=== PATIENT | male | born 1985 | race Caucasian/White ===

== ENCOUNTER 2016-03-31 10:41 | Emergency (ER) | payer SELFPAY ==
[~2016-03-31] VITALS: Ht 182.9 cm; Wt 86.6 kg
[~2016-03-31 10:41] MED LIST: ACET-1256 PO; DIAZ-165 PO; IBUP-103 PO; OXYC1TAB3 PO; PSEU30TA20 PO
[2016-03-31 10:48] VITALS: TEMP 36.7; Ht 182.9 cm; Wt 86.6 kg
[2016-03-31] MEDS ORDERED: PROCHLORPERAZINE 5 MG/ML 2 ML VIAL IV STA (11:36)
[2016-03-31] MEDS ORDERED: DiphenhydrAMINE HCL 50 MG/ML VIAL IV STA (11:36)
[2016-03-31] MEDS ORDERED: SODIUM CHLORIDE 0.9% 1000ML 1,000 ML IV STA (11:36)
[2016-03-31] MEDS ORDERED: KETOROLAC TROMETHAMINE 30 MG/ML VIAL IV STA (11:36)
[2016-03-31] MEDS ORDERED: MoRPHine SULFATE 10 MG/ML CARP/VIAL IV STA (12:39)
[2016-03-31] MEDS ORDERED: OXYC-57 PO (13:24)
--- NOTE | 2016-03-31 13:25 | EMERGENCY ROOM VISIT NOTE ---
History First contact with patient: 11:29 Chief Complaint: HEADACHE Stated Complaint: NECK PAIN,MIGRAINE,VOMITING History of Present Illness The patient is a 30 year old male who presents to the Emergency Room with complaints of a migraine headache which started last night. The patient reports that he has been having issues with neck pain for several months. He has been evaluated here previously for the neck pain. He states that he recently went to physical therapy, which did seem to help his neck pain. However, over the past few days he has developed pain in the neck which does feel similar to his chronic neck pain. He states that last night, he developed a migraine headache which does feel similar to previous migraines he has had. He has associated vomiting and photophobia, which he states is normal for him. He rates his discomfort an 8/10 and states the pain as throbbing and located throughout the front of his head. He has taken Excedrin without relief of the headache. He does not see a specialist for his migraines and states that he has not had imaging since he was a child. He denies any fevers/chills, neck stiffness, cough, chest pain, sore throat, earaches, nasal congestion, abdominal pain. He denies any numbness, weakness, vision changes or slurred speech. Review of Systems A complete 10-point Review of Systems was discussed with the patient, with pertinent positives and negatives listed in the History of Present Illness. All remaining Review of Systems questions can be considered negative unless otherwise specified. Past Medical/Surgical History Medical Problems: (1) Chronic lumbar pain (2) Chronic lumbar pain (3) Left lumbar radiculitis (4) Left lumbar radiculitis (5) Pain in left testicle (6) Pain, dental (7) Right groin pain (8) Testicular torsion (9) Torticollis, acute Surgical Problems: (1) Status post orchiopexy Family History FH: HTN (hypertension) FH: cancer FH: heart disease Social History Smoking Status: Former Smoker Alcohol Use: occasionally Drug Use: none Marital Status: Housing Status: lives with significant other Occupation Status: employed Current/Historical Medications Scheduled PRN Acetaminophen (Tylenol), 1,000 MG PO Q6 PRN for Pain Ibuprofen Tab (Advil), 400-600 MG PO Q6H PRN for Pain Oxycodone/Acetaminophen 5MG/325MG (Percocet 5MG/325MG), 1-2 TABS PO Q4H PRN for Pain Pseudoephedrine (Sudafed), 30 MG PO DAILY PRN for CONGESTION Allergies Coded Allergies: CI Pigment Blue 63 (Verified Allergy, Intermediate, Vomiting, 03/31/16) Duloxetine (Verified Allergy, Intermediate, Vomiting, 03/31/16) Physical Exam Vital Signs Date Time Temp Pulse Resp B/P Pulse Ox O2 Delivery O2 Flow Rate FiO2 03/31/16 13:41 79 17 139/79 98 03/31/16 12:55 78 18 120/90 100 Room Air 03/31/16 10:48 36.7 100 17 136/91 97 Room Air Physical Exam VITALS: Vitals are noted on the nurse's note and reviewed by myself. Vital signs stable. GENERAL: This is a 30-year-old male, in no acute distress, nondiaphoretic, well- developed well-nourished. SKIN: The skin was without rashes. HEAD: Normocephalic atraumatic. EARS: External auditory canals clear, tympanic membranes pearly mercado without erythema or effusion bilaterally. EYES: Pupils equal round and reactive to light and accommodation. Conjunctivae without injection, sclerae without icterus. Extraocular movements intact. NOSE: Patent, turbinates without inflammation or discharge. No sinus tenderness. MOUTH: Mucous membranes moist. Tonsils are not enlarged. Pharynx without erythema or exudate. NECK: Supple without nuchal rigidity. No lymphadenopathy. Kernig's and Brudzinski's negative. HEART: Regular rate and rhythm without murmurs gallops or rubs. LUNGS: Clear to auscultation bilaterally without wheezes, rales or rhonchi. ABDOMEN: Soft, nontender to palpation. MUSCULOSKELETAL: Full range of motion of all extremities, strength 5/5 throughout. NEURO: Patient was alert and oriented to person place and time. Normal sensation to light and sharp touch. Deep tendon reflexes 2+ throughout. No focal neurological deficits. Medical Decision & Procedures Medications Administered Medications (Trade) Dose Ordered Sig/David Route Start Time Stop Time Status Last Admin Dose Admin Sodium Chloride (Nss 1000ml) 1,000 ml @ 999 mls/hr Q1H1M STAT IV 03/31/16 11:36 03/31/16 12:36 DC 03/31/16 11:48 999 MLS/HR Prochlorperazine Edisylate (Compazine Inj) 10 mg NOW STAT IV 03/31/16 11:36 03/31/16 11:38 DC 03/31/16 11:49 10 MG Ketorolac Tromethamine (Toradol Inj) 30 mg NOW STAT IV 03/31/16 11:36 03/31/16 11:38 DC 03/31/16 11:49 30 MG Diphenhydramine HCl (Benadryl Inj) 25 mg NOW STAT IV 03/31/16 11:36 03/31/16 11:38 DC 03/31/16 11:48 25 MG Morphine Sulfate (MoRPHine SULFATE INJ) 6 mg NOW STAT IV 03/31/16 12:39 03/31/16 12:40 DC 03/31/16 12:53 6 MG Medical Decision The differential diagnosis includes acute intracranial bleed, meningitis, encephalitis, mass or mass effect, sinusitis, infection, tumor, headache, temporal arteritis and carbon monoxide exposure, and migraine. The patient was evaluated as above. IV access was obtained. The patient was medicated as above. The patient is a 30-year-old male who presents complaining of neck pain and migraine headache. The patient does have a history of neck pain and has been seen here for it previously. He has had imaging performed at this facility for neck pain. He states that the neck pain is similar to his chronic pain. He has no fever or meningismus to suggest meningitis or encephalitis. I did initially suggest a CT scan, but the patient declined any further testing. He does report this is not the worst headache of his life and does feel similar to previous migraines. The patient was initially treated with 10 mg Compazine IV, 30 mg Toradol IV, and 25 mg Benadryl IV. He had only moderate relief of his headache and was then given 6 mg morphine with significant relief. He was given a home pack and short prescription of pain medication for any persistent headache. He was encouraged to follow up with his primary care provider or return sooner for any worsening or new/concerning symptoms. He verbalized understanding of my assessment and treatment plan and was discharged home in good condition. The patient's case was reviewed with Dr. Casillas, ED attending physician, who agreed with my assessment and treatment plan. [place] Drug Monitoring Program Search Results: patient reviewed within database, no issues identified Impression Primary Impression: Headache Departure Information Dispostion Home / Self-Care Condition GOOD Prescriptions Oxycodone/Acetaminophen 5MG/325MG (PERCOCET 5MG/325MG) Tab 1-2 TABS PO Q4H Y for Pain, #10 TAB For Initial Treatment Prov: Leela Ariza PA-C 03/31/16 Referrals No Doctor, Assigned (PCP) Patient Instructions [facility] Additional Instructions You have been treated in the Emergency Department for a Headache. You have received pain medicine in the emergency department which impairs your ability to operate a vehicle. It is illegal for you to drive after receiving these medicines. You have been prescribed Percocet to be used for pain control. This is a narcotic medication. You cannot drive or consume alcohol while on this medicine. This medicine should only be used for pain that cannot be controlled with [id number] pain medicines. For pain control, you can use the following [id number] medicines (if >12 yo): - Regular strength (325mg/tab) Tylenol (acetaminophen) 2 tabs every 4-6 hours as needed. Do not exceed 12 tablets in a 24 hour period. Avoid taking more than 4 grams (4000 mg) of Tylenol per day. This includes any other sources of acetaminophen you may take on a regular basis. - Regular strength (200 mg/tab) Advil (ibuprofen) 1-2 tabs every 4-6 hours as needed. Do not exceed a dose of 3200 mg per day. You should relax in a quiet, dark place for the rest of the day. Avoid any possible triggers including: cigarette smoke, caffeine, nicotine, chocolate, wine, beer, loud noises or music, or bright lights. You should schedule a follow-up appointment in 2-3 days with your Primary Care Provider or established Neurologist for further evaluation and treatment of your Headache. Return to the Emergency Department if your current symptoms worsen despite treatment course outlined above, or if you develop any of the following symptoms : intractable pain despite aforementioned treatment course, visual disturbances , loss of vision, unilateral weakness or facial drooping, slurring of speech, loss of coordination, or loss of consciousness. Problem Qualifiers Primary Impression: Headache Headache type: unspecified Headache chronicity pattern: acute headache Intractability: not intractable Qualified Codes: R51 - Headache
[2016-03-31 13:41] VITALS: BP 139/79; PULSE 79; O2SAT 98
== END 2016-03-31 13:41 | disposition home or self-care (01) ==
LOC: C.EDB 10:43 → C.EDC 13:41
DX: R51 Headache (principal); M54.2 Cervicalgia; G89.29 Other chronic pain; Z79.899 Other long term (current) drug therapy; Z87.891 Personal history of nicotine dependence; Z91.09 Other allergy status, other than to drugs and biological substances; Z82.49 Family history of ischemic heart disease and other diseases of the circulatory system; Z80.9 Family history of malignant neoplasm, unspecified

== ENCOUNTER 2017-03-30 21:05 | Emergency (ER) | payer SELFPAY ==
[~2017-03-30] VITALS: Ht 180.3 cm; Wt 92.3 kg
[~2017-03-30 21:05] MED LIST changes: -DIAZ-165 PO; -OXYC1TAB3 PO
[2017-03-30 21:10] VITALS: Ht 180.3 cm; Wt 92.3 kg
[2017-03-30] MEDS ORDERED: SODIUM CHLORIDE 0.9% 1000ML 2,000 ML IV STA (21:45)
[2017-03-30] MEDS ORDERED: ONDANSETRON INJ 2 MG/ML 2 ML VIAL IV STA (21:45)
[2017-03-30 22:07] LABS: BASO % 0.6 %; BASO ABS # 0.03 K/uL (0-0.2); EOS % 1.6 %; EOS ABS # 0.08 K/uL (0-0.5); HEMATOCRIT 43.9 % (42-52); HEMOGLOBIN 15.6 g/dL (14.0-18.0); IG# 0.01 K/uL (0.00-0.02); LYMPH % 37.9 %; LYMPH ABS # 1.93 K/uL (1.2-3.4); MEAN CELL VOLUME 86.9 fL (80-100); MEAN CORPUSCULAR HEMOGLOBIN 30.9 pg (25-34); MEAN CORPUSCULAR HGB CONC 35.5 g/dl (32-36); MEAN PLATELET VOLUME 9.7 fL (7.4-10.4); MONO % 15.1 %; MONO ABS # 0.77 K/uL (0.11-0.59); NEUT % 44.6 %; NEUT ABS # 2.27 K/uL (1.4-6.5); PLATELET COUNT 149 K/uL (130-400); RED CELL DISTRIBUTION WIDTH SD 40.6 fL (36.4-46.3); WHITE BLOOD COUNT 5.09 K/uL (4.8-10.8)
[2017-03-30] MEDS ORDERED: TRAZ50TA35 PO (22:08)
[2017-03-30 22:22] LABS: CALCIUM 9.2 mg/dl (8.5-10.1); CREATININE 0.93 mg/dl (0.60-1.40); POTASSIUM 3.6 mmol/L (3.5-5.1)
[2017-03-30 22:29] LABS: INFLUENZA B ANTIGEN Neg for Influ B (NEG)
--- NOTE | 2017-03-30 22:59 | DIAGNOSTIC IMAGING REPORT ---
CHEST 2 VIEWS ROUTINE CLINICAL HISTORY: 31 years-old Male presenting with cough.congestion, flulike symptoms. TECHNIQUE: PA and lateral views of the chest were obtained. COMPARISON: None. FINDINGS: Cardiomediastinal silhouette normal. Lungs and pleural spaces clear. Osseous structures normal. Upper abdomen normal. IMPRESSION: 1. No acute cardiopulmonary disease. Electronically signed by: Danielito Castañeda M.D. 03/30/2017 10:58 PM Dictated Date/Time: 03/30/2017 10:57 PM
[2017-03-30] MEDS ORDERED: ONDANSETRON HOME PACK 4MG OD TAB PO ONE (23:15)
[2017-03-30] MEDS ORDERED: SODIUM CHLORIDE 0.9% 1000ML 1,000 ML IV STA (23:17)
[2017-03-31] MEDS ORDERED: ONDA4TAB10 SL (00:30)
[2017-03-31 00:37] VITALS: BP 125/70; PULSE 80; TEMP 36.2; O2SAT 100
--- NOTE | 2017-03-31 04:14 | EMERGENCY ROOM VISIT NOTE ---
History First contact with patient: 21:31 Chief Complaint: FLU LIKE SX Stated Complaint: VOMITING,WEAKNESS,DIZZINESS,BODY ACHES History of Present Illness The patient is a 31 year old male who presents to the Emergency Room with complaints of nausea, vomiting, diarrhea, cough and chills for the past few days. No sick contacts. No temperature was taken. Patient denies chest pain, dyspnea, headache, neck stiffness, sore throat. No abdominal pain. He is able to keep fluids down but has not really eaten. He feels as if the vomiting and diarrhea are tapering off. Review of Systems An 10 system review of systems was completed with positives and pertinent negatives listed in the HPI. Past Medical/Surgical History Medical Problems: (1) Chronic lumbar pain (2) Chronic lumbar pain (3) Left lumbar radiculitis (4) Left lumbar radiculitis (5) Pain in left testicle (6) Pain, dental (7) Right groin pain (8) Testicular torsion (9) Torticollis, acute Surgical Problems: (1) Status post orchiopexy Family History FH: HTN (hypertension) FH: cancer FH: heart disease Social History Smoking Status: Never Smoker Alcohol Use: occasionally Drug Use: none Marital Status: Housing Status: lives with significant other Occupation Status: employed Current/Historical Medications Scheduled Ondasetron Odt (Zofran Odt), 4 MG SL Q6H Trazodone Hcl (Trazodone), 50 MG PO HS Physical Exam Vital Signs Date Time Temp Pulse Resp B/P (MAP) Pulse Ox O2 Delivery O2 Flow Rate FiO2 03/31/17 00:37 36.2 80 18 125/70 100 Room Air 03/30/17 23:45 36.0 88 18 128/71 100 Room Air 03/30/17 21:10 36.7 92 18 151/96 100 Room Air Physical Exam VITALS: Vitals are noted on the nurse's note and reviewed by myself. Vital signs stable. GENERAL: Pleasant male, in no acute distress, nondiaphoretic, well-developed well-nourished. SKIN: Capillary reflex less than 2 seconds. HEENT: Normocephalic. PERRLA. EOMI. Nares patent. Mucous membranes mildly dry. Neck is supple without nuchal rigidity. HEART: Regular rate and rhythm without murmurs gallops or rubs. LUNGS: Clear to auscultation bilaterally without wheezes, rales or rhonchi. No retractions or accessory muscle use. ABDOMEN: Positive bowel sounds x 4. Normal tympanic percussion. Soft, nontender, without masses or organomegaly. Kilpatrick sign negative. No guarding or rebound tenderness. MUSCULOSKELETAL: No gross musculoskeletal defects. NEURO: Patient was alert and oriented to person place and time. Normal sensation to light and sharp touch. No focal neurological deficits. Medical Decision & Procedures Laboratory Results 03/30/17 21:56 Red Blood Count 5.05, Mean Corpuscular Volume 86.9, Mean Corpuscular Hemoglobin 30.9, Mean Corpuscular Hemoglobin Concent 35.5, Mean Platelet Volume 9.7, Neutrophils (%) (Auto) 44.6, Lymphocytes (%) (Auto) 37.9, Monocytes (%) (Auto) 15.1, Eosinophils (%) (Auto) 1.6, Basophils (%) (Auto) 0.6, Neutrophils # (Auto ) 2.27, Lymphocytes # (Auto) 1.93, Monocytes # (Auto) 0.77, Eosinophils # (Auto ) 0.08, Basophils # (Auto) 0.03 03/30/17 21:56 Test 03/30/17 21:10 03/30/17 21:56 Influenza Type A Antigen Neg for Influ A (NEG) Influenza Type B Antigen Neg for Influ B (NEG) White Blood Count 5.09 K/uL (4.8-10.8) Red Blood Count 5.05 M/uL (4.7-6.1) Hemoglobin 15.6 g/dL (14.0-18.0) Hematocrit 43.9 % (42-52) Mean Corpuscular Volume 86.9 fL (80-100) Mean Corpuscular Hemoglobin 30.9 pg (25-34) Mean Corpuscular Hemoglobin Concent 35.5 g/dl (32-36) Platelet Count 149 K/uL (130-400) Mean Platelet Volume 9.7 fL (7.4-10.4) Neutrophils (%) (Auto) 44.6 % Lymphocytes (%) (Auto) 37.9 % Monocytes (%) (Auto) 15.1 % Eosinophils (%) (Auto) 1.6 % Basophils (%) (Auto) 0.6 % Neutrophils # (Auto) 2.27 K/uL (1.4-6.5) Lymphocytes # (Auto) 1.93 K/uL (1.2-3.4) Monocytes # (Auto) 0.77 K/uL (0.11-0.59) Eosinophils # (Auto) 0.08 K/uL (0-0.5) Basophils # (Auto) 0.03 K/uL (0-0.2) RDW Standard Deviation 40.6 fL (36.4-46.3) RDW Coefficient of Variation 13.0 % (11.5-14.5) Immature Granulocyte % (Auto) 0.2 % Immature Granulocyte # (Auto) 0.01 K/uL (0.00-0.02) Anion Gap 9.0 mmol/L (3-11) Est Creatinine Clear Calc Drug Dose 134.8 ml/min Estimated GFR () 127.2 Estimated GFR (Non- 109.8 BUN/Creatinine Ratio 9.2 (10-20) Calcium Level 9.2 mg/dl (8.5-10.1) Medications Administered Medications (Trade) Dose Ordered Sig/David Route Start Time Stop Time Status Last Admin Dose Admin Ondansetron HCl (Zofran Inj) 4 mg NOW STAT IV 03/30/17 21:45 03/30/17 21:50 DC 03/30/17 21:58 4 MG Sodium Chloride 2,000 ml @ 999 mls/hr Q2H1M STAT IV 03/30/17 21:45 03/30/17 23:45 DC 03/30/17 21:58 999 MLS/HR Ondansetron HCl (ZOFRAN ODT 4MG Home Pack) 1 homepack UD ONCE PO 03/30/17 23:15 03/30/17 23:16 DC 03/30/17 23:43 1 HOMEPACK Sodium Chloride 1,000 ml @ 999 mls/hr Q1H1M STAT IV 03/30/17 23:17 03/31/17 00:17 DC 03/30/17 23:43 999 MLS/HR ED Course Prior records/ancillary studies reviewed. Triage Nursing notes reviewed. Additional history obtained from the family. The patient's history was concerning for nausea, vomiting, diarrhea, and cough. Differential diagnosis: Etiologies such as gastroenteritis, food borne illness, infections, appendicitis , diverticulitis, inflammatory bowel disease, obstruction, GI bleed, biliary pathology, as well as others were entertained. Physical examination findings: As above. Abdominal examination revealed no tenderness. Vital signs reviewed and revealed stable. ER treatment provided: IV hydration 2 L NSS. P.o. fluids, crackers and peanut butter On reassessment the patient felt better. Patient was tolerating p.o. intake. Diagnostics interpretation by me: The labs revealed no leukocytosis. Negative influenza Imaging studies: CHEST 2 VIEWS ROUTINE CLINICAL HISTORY: 31 years-old Male presenting with cough.congestion, flulike symptoms. TECHNIQUE: PA and lateral views of the chest were obtained. COMPARISON: None. FINDINGS: Cardiomediastinal silhouette normal. Lungs and pleural spaces clear. Osseous structures normal. Upper abdomen normal. IMPRESSION: 1. No acute cardiopulmonary disease. Electronically signed by: Danielito Castañeda M.D. Consultation: This appears to be consistent with vomiting and diarrhea with cough most likely viral in etiology. Patient felt better and requested to leave. He had no vomiting or diarrhea in the ER. He was able to ambulate without difficulties. He requested to leave. He was advised to take medications as directed, rest, stay well hydrated in the follow-up family here in a few days here the ER sooner for high fevers, lethargy, vomiting, pain, worsening signs or symptoms or as needed. Patient did not have acute abdomen on exam.. By the evaluation outlined above emergent etiologies such as appendicitis, diverticulitis, obstruction, cardiac sources, mesenteric ischemia, aortic pathology, inflammatory bowel disease, renal colic, PUD, biliary pathology, UTI, as well as others were deemed relatively unlikely. The pt informed about the findings as listed above. All questions were answered and pleased with the treatment. Return instructions were outlined and the patient was discharged in stable condition. Outpatient prescription management: Zofran Referral: The patient was referred to their primary care physician for follow-up in 2 to 3 days for a recheck of the current condition. Case reviewed with my attending Medical Decision As above Medication Reconcilliation Current Medication List: was personally reviewed by me Blood Pressure Screening Patient's blood pressure: Normal blood pressure Impression Primary Impression: Vomiting Additional Impression: Dehydration Departure Information Dispostion Home / Self-Care Condition GOOD Prescriptions Ondasetron Odt (ZOFRAN ODT) 4 Mg Tab 4 MG SL Q6H, #10 TAB Prov: Mandy Lujan .STEPHANIE 03/31/17 Forms HOME CARE DOCUMENTATION FORM, IMPORTANT VISIT INFORMATION Patient Instructions Vomiting - [facility], My [facility] Additional Instructions DO NOT drive, drink alcohol, operate machinery, or perform dangerous activities today. You were given medications in the ER that can affect your ability to safely function or operate a vehicle. Zofran(odansetron) tablets 4mg: Take one and allow it to dissolve in your mouth every four to six hours as needed for nausea or vomiting. Ibuprofen(Motrin, Advil) may be used for fever or pain. Use 600mg every six hours as needed. Take with food. Avoid using more than 2400mg in a 24 hour period. Do not use 2400mg per day for more than three consecutive days without physician direction. Prolonged inappropriate use can lead to stomach upset or ulcers. (AND/OR) Acetaminophen(Tylenol) may be used for fever or pain. Use 1000mg every six hours as needed. Avoid using more than 3000mg in a 24 hour period. Rest and drink plenty of fluids as tolerated. Slow sips of water or sports drinks are recommended instead of large amounts all at once. Continue current medications. Once your stomach is settled start with a clear liquid diet (jello, soup broth, etc.) and then advance as tolerated. You should avoid full, heavy meals for about 24 hrs from the time your symptoms resolved. Return to the ER for persistent vomiting, fevers, abdominal pain, chest pains, difficulty breathing, black or bloody stools, worsening of your condition, or as needed. Follow up with your primary physician in 2-3 days for a recheck of your current condition. Problem Qualifiers Primary Impression: Vomiting Vomiting type: unspecified Vomiting Intractability: non-intractable Nausea presence: with nausea Qualified Codes: R11.2 - Nausea with vomiting, unspecified
== END 2017-03-31 00:38 | disposition home or self-care (01) ==
LOC: C.EDB 21:06 → C.EDC 03-31 00:38
DX: R11.2 Nausea with vomiting, unspecified (principal); E86.0 Dehydration; M54.5 Low back pain; G89.29 Other chronic pain; N44.00 Torsion of testis, unspecified; Z82.49 Family history of ischemic heart disease and other diseases of the circulatory system